=== PATIENT | female | born 1960 | race Caucasian/White ===

== ENCOUNTER 2018-02-16 10:10 | Day surgery (SDC) | payer BC ==
[~2018-02-16 10:10] MED LIST: PROPOFOL 500 MG/50 ML EMU IV ONE
[2018-02-16 12:21] VITALS: PULSE 76; TEMP 98
[2018-02-16 12:44] VITALS: BP 127/79; RESP 20; O2SAT 98
== END 2018-02-16 12:58 | disposition home or self-care (01) ==
LOC: SURG 10:10
PROVIDERS: ATTEND Internal Medicine Gastroenterology
DX: Z12.11 Encounter for screening for malignant neoplasm of colon (principal); Z85.89 Personal history of malignant neoplasm of other organs and systems; K64.8 Other hemorrhoids; D12.2 Benign neoplasm of ascending colon
CPT/HCPCS: 99001; J2704